=== PATIENT | female | born 1960 | race Caucasian/White ===

== ENCOUNTER 2024-10-19 05:45 | Day surgery (SDC) | payer MEDICARE ==
[2024-10-11 13:58] VITALS: BMI 30.3
[2024-10-19] MEDS ORDERED: AFRIN NASAL MIST 15 ML BOT ONE (06:17)
[2024-10-19] MEDS ORDERED: Rocuronium Bromide 10 MG/ML (10ML VIAL) ONE (06:24)
[2024-10-19] MEDS ORDERED: Ondansetron PF 4 MG/2 ML Vial ONE (06:24)
[2024-10-19] MEDS ORDERED: PROPOFOL 20 ML ONE (06:24)
[2024-10-19] MEDS ORDERED: Lidocaine 1% w/Epinephrine 1:200K 30 ML VIAL ONE (06:28)
[2024-10-19] MEDS ORDERED: SUGAMMADEX SODIUM 200 MG/2 ML VIAL ONE ×2 (06:29→06:30)
[2024-10-19] MEDS ORDERED: Lidocaine 4% Topical Sol 50 ML BOT ONE (06:29)
[2024-10-19] MEDS ORDERED: Sevoflurane 250 ML INH ANEST BOTTLE ONE (06:30)
[2024-10-19] MEDS ORDERED: Lidocaine 1% PF 5 ML VIAL ONE (06:37)
[2024-10-19] MEDS ORDERED: Oxymetazoline HCl 0.05% (15 ML) ONE (07:07)
[2024-10-19] MEDS ORDERED: Glycopyrrolate 0.2 MG/ML 5 ML SYRINGE ONE (07:08)
[2024-10-19] MEDS ORDERED: PHENYLEPHRINE-NS 100 MCG/ML 10 ML SYRINGE ONE (07:32)
== END 2024-10-19 10:15 | disposition home or self-care (01) ==
LOC: CSHSDC 05:45
PROVIDERS: ATTEND Otolaryngology Plastic Surgery within the Head & Neck
PROC: 099R8ZZ Drainage of Left Maxillary Sinus, Via Natural or Artificial Opening Endoscopic (ICD-10-PCS; principal; 2024-10-19)
PROC: 09TV8ZZ Resection of Left Ethmoid Sinus, Via Natural or Artificial Opening Endoscopic (ICD-10-PCS; 2024-10-19)
PROC: 09BR8ZZ Excision of Left Maxillary Sinus, Via Natural or Artificial Opening Endoscopic (ICD-10-PCS; 2024-10-19)
DX: J32.8 Other chronic sinusitis (principal); J33.8 Other polyp of sinus; Z90.49 Acquired absence of other specified parts of digestive tract; Z88.0 Allergy status to penicillin; Z88.2 Allergy status to sulfonamides; Z88.1 Allergy status to other antibiotic agents
CPT/HCPCS: 31255; 31267; J0169; J1100; J2250; J2405; J2704; J3010; J3301; 88304